=== PATIENT | female | born 1955 | race Caucasian/White ===

== ENCOUNTER 2023-10-03 10:58 | Outpatient (CLI) | payer BC, MEDICAID ==
[~2023-10-03 10:58] MED LIST: CALC600T35 PO; CHOL10002 PO; DOCU-28 PO; DULO-31 PO; DULO60CA60 PO; EST1T PO; HYDR-4353 PO; LACT1CAP57 PO; LEVO50TA8 PO; LORA10TA7 PO; MULT-620 PO; NYST50002 PO; OMEP20CA15 PO; TRAM50TA2 PO; VITA1CAP19 PO
== END 2023-10-03 23:59 | disposition home or self-care (01) ==
LOC: RAD 10:58
PROVIDERS: ATTEND Nurse Practitioner Family
DX: S82.61XA Displaced fracture of lateral malleolus of right fibula, initial encounter for closed fracture (principal); M25.571 Pain in right ankle and joints of right foot; X58.XXXA Exposure to other specified factors, initial encounter; Y93.89 Activity, other specified; Y92.89 Other specified places as the place of occurrence of the external cause; Y99.8 Other external cause status
CPT/HCPCS: 73610; 73630